=== PATIENT | male | born 1955 | race Caucasian/White ===

== ENCOUNTER 2021-10-06 12:44 | Emergency (ER) | payer MEDICARE, BC ==
[2021-10-06] MEDS ORDERED: SUBLIMAZE 100 MCG/2 ML IV ONE ×2 (13:05→14:35)
[2021-10-06] MEDS ORDERED: Zofran 4 MG/2 ML VIAL IV ONE (13:05)
[2021-10-06] MEDS ORDERED: Sodium Chloride 0.9% 1000 ML 1,000 ML IV SCH (13:15)
[2021-10-06] MEDS ORDERED: Zofran 4 MG/2 ML VIAL ONE (13:17)
[2021-10-06] MEDS ORDERED: SUBLIMAZE 100 MCG/2 ML ONE ×2 (13:17→14:35)
[2021-10-06] MEDS ORDERED: Sodium Chloride 0.9% 1000 ML 1,000 ML ONE (13:17)
[2021-10-06 13:26] LABS: Basophil (Absolute #) 0.03 (0-0.4); Eosinophil % 0.8 % (0.00-5.0); Hematocrit 50.5 % (42-50); Hemoglobin 16.8 gm/dl (12.5-18.0); Lymphocyte (Absolute #) 1.27 (1.0-4.6); Lymphocytes % 9.6 % (24.0-44.0); Mean Cell Volume 91.7 fl (78-100); Mean Corpuscular Hemoglobin 30.5 pg (26-32); Mean Corpuscular Hgb Concent. 33.3 g/dl (32-36); Mean Platelet Volume 11.2 fl (7.5-11.0); Monocyte (Absolute #) 1.18 (0.0-1.3); Neutrophil % 80.4 % (36.0-66.0); Platelet Count 266 K/mm3 (150-450); Red Blood Count 5.51 M/mm3 (4.1-5.6); Red Cell Distribution Width 14.1 % (11.5-14.0); White Blood Count 13.2 K/mm3 (4.0-10.5)
[2021-10-06 13:33] LABS: INR 1.1 (0.8-3.0)
[2021-10-06 13:36] LABS: ANION GAP 20.4 MEQ/L (5-15); BILIRUBIN,TOTAL 1.1 mg/dL (0.2-1.3); Calcium 10.4 mg/dL (8.4-10.2); Creatinine 1 1.51 mg/dL (0.66-1.25); EST GLOMERULAR FILTRATION RATE 49.4 ML/MIN; Potassium 4.7 mmol/L (3.5-5.1); Total Protein 9.3 g/dL (6.3-8.2)
[2021-10-06 14:39] VITALS: BP 138/87
[2021-10-06 15:17] LABS: Hyaline Casts 26-50 /LPF (0-2); Mucus MODERATE /HPF (NEGATIVE); RBC 0-2 /HPF (0-2)
[2021-10-06 15:26] LABS: Appearance CLEAR (CLEAR); Bilirubin SMALL (NEGATIVE); Glucose 250 mg/dL (NEGATIVE); Ketones NEGATIVE (NEGATIVE); Nitrite NEGATIVE (NEGATIVE); Ph 5.5 (5-6); Protein,Urine Dip TRACE (Negative); RBC NEGATIVE Ery/ul (0-5); Specific Gravity >=1.030 (1.005-1.025); Urobilinogen 0.2 mg/dL (0-1)
[2021-10-06 15:28] VITALS: O2SAT 92
[2021-10-06 15:28] LABS: Urine Cultured Indicated? NO
--- NOTE | 2021-10-06 15:31 | XRAY ---
Indication: Elevated WBC and d-dimer. Pulmonary embolus. Multiple contiguous axial images obtained through the chest using 100 cc Isovue 370 contrast and PE protocol. Comparison: None There is adequate opacification of the pulmonary arteries to include the lobar and segmental branches. Occluding and nonoccluding pulmonary emboli in the segmental branches of the right lower lobe, greatest extent lateral segment. Tiny nonoccluding pulmonary emboli in both upper lobes. Heart not enlarged. Aorta is normal in course and caliber. Right hilar lymphadenopathy, largest infrahilar measuring 2.2 x 2.3 cm effacing the pulmonary arteries. Tiny subcarinal calcified node. Small hiatal hernia. Lungs demonstrates posterior right lower lobe groundglass airspace opacities. Elsewhere mild bibasilar subsegmental atelectasis/scarring. No effusion. Bony thorax intact with mild multilevel osteophytes. CT abdomen/pelvis reported separately. Impression: 1. Bilateral segmental occluding/nonoccluding pulmonary emboli, greatest right lower lobe. 2. Right hilar lymphadenopathy with mass effect as detailed. Findings likely reactive. Malignancy not completely excluded. 3. Right lower lobe ground glass airspace disease. 4. Small hiatal hernia.
--- NOTE | 2021-10-06 15:33 | XRAY ---
Indication: Right upper quadrant/right back pain 2 days. Multiple contiguous images obtained through the abdomen and pelvis using 100 cc Isovue 370 contrast. Comparison: None Noncontrasted stomach and bowel loops appear nonobstructed with normal appendix. Mild diffuse scattered colonic diverticulosis without diverticulitis. No free fluid/air. 1.3 cm bilateral adrenal masses, possible adenomas. Diffuse fatty hepatomegaly measuring 21.2 cm. Spleen is also enlarged measuring 14.8 cm. 4 cm right and 2.3 cm left renal cysts. Enlarged prostate gland impresses on the base of the bladder. Remaining liver, gallbladder, pancreas, spleen, adrenal glands, kidneys, ureters, and bladder are unremarkable. Mild scattered aortoiliac calcifications. No AAA or pathologic retroperitoneal lymphadenopathy. Osseous structures intact with minimal/mild degenerative changes throughout the spine. Moderate sized fatty left inguinal hernia. Impression: 1. Small bilateral adrenal gland masses, possible adenomas. Noncontrast exam could confirm. 2. Diffuse fatty hepatomegaly, splenomegaly, bilateral renal cysts, enlarged prostate gland, fatty left inguinal hernia, and degenerative spondylosis.
[2021-10-06] MEDS ORDERED: Heparin 5000 UNITS/0.5 ML (HIGH RISK MED) IV ONE (15:50)
[2021-10-06] MEDS ORDERED: Heparin 25,000 units/D5W 250ML PREMIX 25,000 UNITS/250 ML BAG IV SCH (16:00)
[2021-10-06 16:03] LABS: Dipstick done @ ? MAIN LAB
[2021-10-06] MEDS ORDERED: Heparin 5000 UNITS/0.5 ML (HIGH RISK MED) ONE (16:08)
--- NOTE | 2021-10-06 16:08 | ERPHSYRPT ---
- History of Present Illness Time Seen by Provider: 10/06/21 12:45 Historian: patient, family Exam Limitations: no limitations Patient Subjective Stated Complaint: right side abd pain yesterday and today and today has abd and right side lower chest pain that radiates to right flank and back. Triage Nursing Assessment: Pt c/o right side abd pain since yesterday and states pain also in right side lower chest/flank and radiates to back. No n/v. no diaphoresis. States still has gall bladder and appendix, no heart hx per self but parents had cardiac hx. No problems with bowels or bladder. Physician History: Patient is a 77-year-old white male who presents with a complaint of right flank and right chest pain extending into the abdomen he has had no change in urination no fever chills or sweats but his family does report occasional night sweats. He has been coughing nonproductively since yesterday he rates the pain 10 of 10 it is pleuritic in nature Timing/Duration: yesterday Activities at Onset: none Quality: throbbing, tightness Location: other (Right chest) Chest Pain Radiation: back, abdomen Severity of Pain-Max: severe Severity of Pain-Current: severe Modifying Factors: Improves With: coughing, oxygen Associated Symptoms: shortness of breath, cough, hurts to breathe, diaphoresis Nitro Today/Relief: no nitro taken today Aspirin Treatment Today: no aspirin today Allergies/Adverse Reactions: No Known Drug Allergies Allergy (Unverified 10/06/21 15:58) Immunizations Up to Date: Yes Travel Risk - International Travel Have you traveled outside of the country in past 3 weeks: No - Coronavirus Screening Are you exhibiting any of the following symptoms?: No Close contact with a COVID-19 positive Pt in past 14-21 Days: No - Vaccine Status Have you recieved a Covid-19 vaccination: Yes 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: [employer] - Vaccination Dates Date of 2cond Vaccination (if applicable): 2020 - Review of Systems Constitutional: No Fever, No Chills Eyes: No Symptoms Ears, Nose, & Throat: No Symptoms Respiratory: No Cough, No Dyspnea Cardiac: No Chest Pain, No Edema, No Syncope Abdominal/Gastrointestinal: No Abdominal Pain, No Nausea, No Vomiting, No Diarrhea Genitourinary Symptoms: No Dysuria Musculoskeletal: No Back Pain, No Neck Pain Skin: No Rash Neurological: No Dizziness, No Focal Weakness, No Sensory Changes Psychological: No Symptoms Endocrine: No Symptoms All Other Systems: Reviewed and Negative - Past Medical History Pertinent Past Medical History: Yes Neurological History: No Pertinent History ENT History: Other Cardiac History: No Pertinent History Respiratory History: No Pertinent History Endocrine Medical History: Diabetes Type I Musculoskeletal History: No Pertinent History GI Medical History: No Pertinent History History: No Pertinent History Psycho-Social History: No Pertinent History Male Reproductive Disorders: No Pertinent History Other Medical History: Hearing loss right ear with surgeries - Past Surgical History Past Surgical History: Yes Neuro Surgical History: No Pertinent History Cardiac: No Pertinent History Respiratory: No Pertinent History Gastrointestinal: No Pertinent History Genitourinary: No Pertinent History Musculoskeletal: No Pertinent History Male Surgical History: No Pertinent History - Social History Smoking Status: Former smoker Exposure to second hand smoke: No Drug Use: marijuana - Nursing Vital Signs Nursing Vital Signs: Initial Vital Signs Temperature 98.6 F 10/06/21 12:45 Pulse Rate 91 H 10/06/21 12:45 Respiratory Rate 18 10/06/21 12:45 Blood Pressure 146/96 10/06/21 12:45 O2 Sat by Pulse Oximetry 93 L 10/06/21 12:45 Pain Scale Pain Intensity 4 - Physical Exam General Appearance: moderate distress Eye Exam: PERRL/EOMI, eyes nml inspection Ears, Nose, Throat Exam: normal ENT inspection, moist mucous membranes Neck Exam: normal inspection, non-tender, supple, full range of motion Respiratory Exam: respiratory distress (Mild), airway intact, rhonchi Cardiovascular Exam: regular rate/rhythm Gastrointestinal/Abdomen Exam: soft, No tenderness, No mass Extremity Exam: normal inspection, normal range of motion Neurologic Exam: alert, oriented x 3, cooperative, normal mood/affect, sensation nml, No motor deficits Skin Exam: normal color, warm, dry SpO2 Interpretation: hypoxic, O2 applied SpO2: 92 O2 Delivery: Nasal Cannula - Course Nursing assessment & vital signs reviewed: Yes EKG Interpreted by Me: RATE (98), Sinus Rhythm, Other (Ventricular bigeminy left atrial enlargement left anterior fascicular block and left ventricular hypertrophy) - CT Exams Chest CT Interpretation: Tele-radiologist Report Abdomen/Pelvis CT Interpretation: Tele-radiologist Report Ordered Tests: Active Orders 24 hr Category Date Time Status EKG-ER Only STAT Care 10/06/21 13:02 Active IV Insertion STAT Care 10/06/21 13:02 Active Oxygen-ED Only Nasal Cannula 2 lpm Care 10/06/21 13:58 Active ABDOMEN AND PELVIS W CONTRAST [CT] Stat Exams 10/06/21 13:03 Completed CHEST WITH CONTRAST [CT] Stat Exams 10/06/21 13:45 Completed AMYLASE Stat Lab 10/06/21 12:46 Completed BLOOD CULTURE Stat Lab 10/06/21 13:50 Received CBC W DIFF Stat Lab 10/06/21 13:02 Completed CMP Stat Lab 10/06/21 12:46 Completed D-DIMER QUANTITATIVE Stat Lab 10/06/21 12:46 Completed LIPASE Stat Lab 10/06/21 12:46 Completed Lactic Acid Stat Lab 10/06/21 12:46 Completed NT PRO BNP Stat Lab 10/06/21 12:46 Completed PROTIME WITH INR Stat Lab 10/06/21 12:46 Completed TROPONIN Q3H Lab 10/06/21 12:46 Completed TROPONIN Q3H Lab 10/06/21 15:52 Received TROPONIN Q3H Lab 10/06/21 19:15 Ordered TROPONIN Q3H Lab 10/06/21 22:15 Ordered TROPONIN Q3H Lab 10/07/21 01:15 Ordered UA W/RFX CULTURE Stat Lab 10/06/21 13:57 Results Medication Summary Generic Name Dose Route Start Last Admin Trade Name Freq PRN Reason Stop Dose Admin Sodium Chloride 1,000 mls @ 100 mls/hr 10/06/21 13:15 10/06/21 13:19 Sodium Chloride 0.9% 1000 Ml IV 11/05/21 13:14 100 mls/hr .Q10H YARA Administration Heparin Sodium/Dextrose 25,000 units in 250 mls @ 10 mls/hr 10/06/21 16:00 Heparin 25,000 Units/D5w 250ml Premix IV 11/05/21 15:59 .Q24H YARA Discontinued Medications Generic Name Dose Route Start Last Admin Trade Name Freq PRN Reason Stop Dose Admin Fentanyl Citrate 100 mcg 10/06/21 13:05 10/06/21 13:19 Fentanyl Citrate 100 Mcg/2 Ml* Vial IV 10/06/21 13:06 100 mcg STAT ONE Administration Fentanyl Citrate Confirm 10/06/21 13:17 Fentanyl Citrate 100 Mcg/2 Ml* Vial Administered 10/06/21 13:18 Dose 100 mcg .ROUTE .STK-MED ONE Fentanyl Citrate 100 mcg 10/06/21 14:35 10/06/21 14:36 Fentanyl Citrate 100 Mcg/2 Ml* Vial IV 10/06/21 14:36 100 mcg STAT ONE Administration Fentanyl Citrate Confirm 10/06/21 14:35 Fentanyl Citrate 100 Mcg/2 Ml* Vial Administered 10/06/21 14:36 Dose 100 mcg .ROUTE .STK-MED ONE Heparin Sodium (Beef Lung) 5,000 unit 10/06/21 15:50 Heparin 5000 Unit/0.5 Ml Syringe IV 10/06/21 15:51 STAT ONE Ondansetron HCl 4 mg 10/06/21 13:05 10/06/21 13:19 Ondansetron Hcl 4 Mg/2 Ml Vial IV 10/06/21 13:06 4 mg STAT ONE Administration Ondansetron HCl Confirm 10/06/21 13:17 Ondansetron Hcl 4 Mg/2 Ml Vial Administered 10/06/21 13:18 Dose 4 mg .ROUTE .STK-MED ONE Lab/Rad Data: Laboratory Result Diagrams 10/06/21 13:02 10/06/21 12:46 Laboratory Results 10/06/21 10/06/21 10/06/21 Range/Units 13:57 13:02 12:46 WBC 13.2 H (4.0-10.5) K/mm3 RBC 5.51 (4.1-5.6) M/mm3 Hgb 16.8 (12.5-18.0) gm/dl Hct 50.5 H (42-50) % MCV 91.7 (78-100) fl MCH 30.5 (26-32) pg MCHC 33.3 (32-36) g/dl RDW 14.1 H (11.5-14.0) % Plt Count 266 (150-450) K/mm3 MPV 11.2 H (7.5-11.0) fl Gran % 80.4 H (36.0-66.0) % Eos # (Auto) 0.10 (0-0.5) Absolute Lymphs (auto) 1.27 (1.0-4.6) Absolute Monos (auto) 1.18 (0.0-1.3) Lymphocytes % 9.6 L (24.0-44.0) % Monocytes % 9.0 (0.0-12.0) % Eosinophils % 0.8 (0.00-5.0) % Basophils % 0.2 (0.0-0.4) % Absolute Granulocytes 10.60 H (1.4-6.9) Basophils # 0.03 (0-0.4) PT (9.4-12.5) SECONDS INR (0.8-3.0) D-Dimer (215-500) ng/mL Sodium (137-145) mmol/L Potassium (3.5-5.1) mmol/L Chloride (98-107) mmol/L Carbon Dioxide (22-30) mmol/L Anion Gap (5-15) MEQ/L BUN (9-20) mg/dL Creatinine (0.66-1.25) mg/dL Estimated GFR ML/MIN Glucose (74-106) mg/dL Lactic Acid (0.4-2.0) Calcium (8.4-10.2) mg/dL Total Bilirubin (0.2-1.3) mg/dL AST (17-59) U/L ALT (0-50) U/L Alkaline Phosphatase (38-126) U/L Troponin I 0.012 (0.000-0.034) ng/mL NT-Pro-B Natriuret Pep (0-900) pg/mL Serum Total Protein (6.3-8.2) g/dL Albumin (3.5-5.0) g/dL Amylase (30-110) U/L Lipase (23-300) U/L Urinalys Dipstick Clnc Pending Urine Color YELLOW (YELLOW) Urine Appearance CLEAR (CLEAR) Urine pH 5.5 (5-6) Ur Specific [place] >=1.030 (1.005-1.025) POC Urine Protein Conf TRACE (Negative) Urine Ketones NEGATIVE (NEGATIVE) Urine Nitrite NEGATIVE (NEGATIVE) Urine Bilirubin SMALL (NEGATIVE) Urine Urobilinogen 0.2 (0-1) mg/dL Urine Leukocytes NEGATIVE (NEGATIVE) Urine WBC (Auto) 3-5 (0-5) /HPF Urine RBC (Auto) 0-2 (0-2) /HPF U Hyaline Cast (Auto) 26-50 (0-2) /LPF U Epithel Cells (Auto) NONE (FEW) /HPF Urine Bacteria (Auto) NONE (NEGATIVE) /HPF Urine RBC NEGATIVE (0-5) [place]/ul Other Casts (Auto) 5-10 (NEGATIVE) /LPF Urine Mucus (Auto) MODERATE (NEGATIVE) /HPF Ur Culture Indicated? NO Urine Glucose 250 (NEGATIVE) mg/dL 10/06/21 10/06/21 10/06/21 Range/Units 12:46 12:46 12:46 WBC (4.0-10.5) K/mm3 RBC (4.1-5.6) M/mm3 Hgb (12.5-18.0) gm/dl Hct (42-50) % MCV (78-100) fl MCH (26-32) pg MCHC (32-36) g/dl RDW (11.5-14.0) % Plt Count (150-450) K/mm3 MPV (7.5-11.0) fl Gran % (36.0-66.0) % Eos # (Auto) (0-0.5) Absolute Lymphs (auto) (1.0-4.6) Absolute Monos (auto) (0.0-1.3) Lymphocytes % (24.0-44.0) % Monocytes % (0.0-12.0) % Eosinophils % (0.00-5.0) % Basophils % (0.0-0.4) % Absolute Granulocytes (1.4-6.9) Basophils # (0-0.4) PT 13.0 H (9.4-12.5) SECONDS INR 1.10 (0.8-3.0) D-Dimer 2121 H* (215-500) ng/mL Sodium 140 (137-145) mmol/L Potassium 4.7 (3.5-5.1) mmol/L Chloride 103 (98-107) mmol/L Carbon Dioxide 21 L (22-30) mmol/L Anion Gap 20.4 H (5-15) MEQ/L BUN 21 H (9-20) mg/dL Creatinine 1.51 H (0.66-1.25) mg/dL Estimated GFR 49.4 ML/MIN Glucose 90 (74-106) mg/dL Lactic Acid (0.4-2.0) Calcium 10.4 H (8.4-10.2) mg/dL Total Bilirubin 1.10 (0.2-1.3) mg/dL AST 43 (17-59) U/L ALT 46 (0-50) U/L Alkaline Phosphatase 101 (38-126) U/L Troponin I (0.000-0.034) ng/mL NT-Pro-B Natriuret Pep 41.6 (0-900) pg/mL Serum Total Protein 9.3 H (6.3-8.2) g/dL Albumin 5.0 (3.5-5.0) g/dL Amylase 104 (30-110) U/L Lipase 197 (23-300) U/L Urinalys Dipstick Clnc Urine Color (YELLOW) Urine Appearance (CLEAR) Urine pH (5-6) Ur Specific [place] (1.005-1.025) POC Urine Protein Conf (Negative) Urine Ketones (NEGATIVE) Urine Nitrite (NEGATIVE) Urine Bilirubin (NEGATIVE) Urine Urobilinogen (0-1) mg/dL Urine Leukocytes (NEGATIVE) Urine WBC (Auto) (0-5) /HPF Urine RBC (Auto) (0-2) /HPF U Hyaline Cast (Auto) (0-2) /LPF U Epithel Cells (Auto) (FEW) /HPF Urine Bacteria (Auto) (NEGATIVE) /HPF Urine RBC (0-5) [place]/ul Other Casts (Auto) (NEGATIVE) /LPF Urine Mucus (Auto) (NEGATIVE) /HPF Ur Culture Indicated? Urine Glucose (NEGATIVE) mg/dL 10/06/21 Range/Units 12:46 WBC (4.0-10.5) K/mm3 RBC (4.1-5.6) M/mm3 Hgb (12.5-18.0) gm/dl Hct (42-50) % MCV (78-100) fl MCH (26-32) pg MCHC (32-36) g/dl RDW (11.5-14.0) % Plt Count (150-450) K/mm3 MPV (7.5-11.0) fl Gran % (36.0-66.0) % Eos # (Auto) (0-0.5) Absolute Lymphs (auto) (1.0-4.6) Absolute Monos (auto) (0.0-1.3) Lymphocytes % (24.0-44.0) % Monocytes % (0.0-12.0) % Eosinophils % (0.00-5.0) % Basophils % (0.0-0.4) % Absolute Granulocytes (1.4-6.9) Basophils # (0-0.4) PT (9.4-12.5) SECONDS INR (0.8-3.0) D-Dimer (215-500) ng/mL Sodium (137-145) mmol/L Potassium (3.5-5.1) mmol/L Chloride (98-107) mmol/L Carbon Dioxide (22-30) mmol/L Anion Gap (5-15) MEQ/L BUN (9-20) mg/dL Creatinine (0.66-1.25) mg/dL Estimated GFR ML/MIN Glucose (74-106) mg/dL Lactic Acid 1.1 (0.4-2.0) Calcium (8.4-10.2) mg/dL Total Bilirubin (0.2-1.3) mg/dL AST (17-59) U/L ALT (0-50) U/L Alkaline Phosphatase (38-126) U/L Troponin I (0.000-0.034) ng/mL NT-Pro-B Natriuret Pep (0-900) pg/mL Serum Total Protein (6.3-8.2) g/dL Albumin (3.5-5.0) g/dL Amylase (30-110) U/L Lipase (23-300) U/L Urinalys Dipstick Clnc Urine Color (YELLOW) Urine Appearance (CLEAR) Urine pH (5-6) Ur Specific [place] (1.005-1.025) POC Urine Protein Conf (Negative) Urine Ketones (NEGATIVE) Urine Nitrite (NEGATIVE) Urine Bilirubin (NEGATIVE) Urine Urobilinogen (0-1) mg/dL Urine Leukocytes (NEGATIVE) Urine WBC (Auto) (0-5) /HPF Urine RBC (Auto) (0-2) /HPF U Hyaline Cast (Auto) (0-2) /LPF U Epithel Cells (Auto) (FEW) /HPF Urine Bacteria (Auto) (NEGATIVE) /HPF Urine RBC (0-5) [place]/ul Other Casts (Auto) (NEGATIVE) /LPF Urine Mucus (Auto) (NEGATIVE) /HPF Ur Culture Indicated? Urine Glucose (NEGATIVE) mg/dL - Progress Progress: unchanged Air Movement: fair Blood Culture(s) Obtained: Yes Antibiotics given: No - Departure Departure Disposition: Transfer (Patient will be transferred to [facility] to Dr. Rosalino aguiaring) Clinical Impression: Multiple subsegmental pulmonary emboli without acute cor pulmonale Condition: Critical Critical Care Time: Yes Critical Care Time(excluding separately billable procedures): Critical 30-74 mins (70) Referrals: [facility] [Primary Care Provider] - Follow up/PCP as directed
[2021-10-06] MEDS ORDERED: Hydromorphone 1 mg/ml Injection IV ONE (16:10)
[2021-10-06] MEDS ORDERED: Hydromorphone 1 mg/ml Injection ONE (16:10)
[2021-10-06 16:19] VITALS: PULSE 101
== END 2021-10-06 16:27 | disposition short-term general hospital (02) ==
LOC: ED 12:44
DX: I26.94 Multiple subsegmental thrombotic pulmonary emboli without acute cor pulmonale (principal); R07.9 Chest pain, unspecified; R10.9 Unspecified abdominal pain; R05.1 Acute cough; R06.02 Shortness of breath; E10.9 Type 1 diabetes mellitus without complications
CPT/HCPCS: 36000; 36415; 71260; 74177; 80053; 81015; 82150; 83605; 83690; 83880; 84484; 85025; 85379; 85610; 87040; 93005; 96374; 96375; 96376; 99285; 99291; J1170; J1644; J2405; J3010

== ENCOUNTER 2025-03-29 09:42 | Day surgery (SDC) | payer BC, MEDICARE ==
[~2025-03-29 09:42] MED LIST: KEFZOL 1 GM ONE; Lactated Ringers 1,000 ML IV ONE; Sensorcaine 0.25% 10 ML ONE
[2025-03-29] MEDS ORDERED: CEFAZOLIN SODIUM ONE (10:14)
[2025-03-29 10:46] VITALS: BP 127/76
[2025-03-29] MEDS: TYLENOL EXTRA STRENGTH 500 MG PO ONE (10:46)
[2025-03-29] MEDS: celeBREX 100 MG PO ONE (10:46)
[2025-03-29 10:47] LABS: BASOPHIL % 0.4 % (0.2-1.2); Basophil (Absolute #) 0.02 x10^3/uL (0.01-0.08); Eosinophil (Absolute #) 0.12 x10^3/uL (0.04-0.54); Hematocrit 47.8 % (40.1-51.0); Hemoglobin 16.0 g/dL (13.7-17.5); IMMATURE GRAN # 0.02 x10^3u/L (0.001-0.031); IMMATURE GRAN % 0.4 % (0.001-0.429); Lymphocyte (Absolute #) 1.49 x10^3/uL (1.32-3.57); Mean Corpuscular Hemoglobin 31.6 pg (25.7-32.2); Mean Corpuscular Hgb Concent. 33.5 g/dL (32.3-36.5); Monocyte (Absolute #) 0.63 x10^3/uL (0.30-0.82); NUCLEATED RBC # 0.00 x10^3u/L (0.00-0.012); NUCLEATED RBC % 0.0 % (0.00-0.2); Platelet Count 193 x10^3/uL (163-337); Red Blood Count 5.06 x10^6/uL (4.63-6.08); White Blood Count 5.2 x10^3/uL (4.23-9.07)
[2025-03-29] MEDS: Decadron 4 MG PO ONE (10:47)
[2025-03-29 11:31] LABS: Calcium 9.6 mg/dL (8.4-10.2); Carbon Dioxide 25.0 mmol/L (22-30); Creatinine 1 1.19 mg/dL (0.66-1.25); EST GLOMERULAR FILTRATION RATE 66.1 ML/MIN; Glucose 139.0 mg/dL (74-106); Potassium 4.8 mmol/L (3.5-5.1); SGOT/AST 38.0 U/L (17-59); SGPT/ALT 35.0 U/L (0-50); Total Protein 8.2 g/dL (6.3-8.2)
[2025-03-29] MEDS ORDERED: SUBLIMAZE 100 MCG/2 ML ONE ×3 (11:46→13:23)
[2025-03-29] MEDS ORDERED: propofoL IV ONE (11:46)
[2025-03-29] MEDS ORDERED: Xylocaine-Mpf 2% 5 Ml Vial ONE (11:46)
[2025-03-29] MEDS ORDERED: ROCURONIUM BROMIDE IV ONE ×2 (11:46→12:17)
[2025-03-29] MEDS ORDERED: Zofran 4 MG/2 ML VIAL ONE (12:00)
[2025-03-29] MEDS ORDERED: BRIDION 200MG/2ML IV ONE (12:00)
[2025-03-29] MEDS ORDERED: Ephedrine Sulfate 50 MG/ML ONE (12:06)
[2025-03-29] MEDS ORDERED: ROBINUL ONE (12:24)
[2025-03-29] MEDS ORDERED: TRANDATE 20 MG/4 ML SYRINGE IV ONE (12:43)
[2025-03-29] MEDS ORDERED: DILAUDID 2 MG INJECTION ONE (13:01)
[2025-03-29] MEDS ORDERED: DILAUDID 0.5 MG/0.5 ML SYRINGE ONE (13:23)
[2025-03-29] MEDS: DUONEB 0.5-3 MG/3 ml Neb IH ONE (14:12)
[2025-03-29 16:43] VITALS: PULSE 82; RESP 20; TEMP 97.7; O2SAT 91
--- NOTE | 2025-03-29 16:50 | XRAY ---
Indication: Low oxygenation. Postop. Comparison: None Portable chest demonstrates mild left base infiltrate/atelectasis/effusion. Also minimal bilateral midlung curvilinear subsegmental atelectasis/scarring. No pneumothorax. Heart not enlarged. Bony thorax intact.
--- NOTE | 2025-03-30 09:34 | OP ---
SURGERY DATE/TIME: 03/29/2025 [id number] PREOPERATIVE DIAGNOSIS: Umbilical hernia. POSTOPERATIVE DIAGNOSIS: Umbilical hernia. PROCEDURE: Laparoscopic repair of umbilical hernia with mesh, intraperitoneal onlay mesh. SURGEON: Faustino Bartlett MD ANESTHESIA: General. ESTIMATED BLOOD LOSS: Minimal. PATIENT CONDITION: Stable. COMPLICATIONS: None. SPECIMEN: None. HISTORY OF PRESENT ILLNESS: The patient is a 69-year-old male with reducible umbilical hernia. On exam, quite symptomatic with that, is obese. Discussed with patient risk of infection, bleeding, injury to nearby structures, hernia recurrence, acute pain, chronic pain. Options of a primary repair with almost certain recurrence. Mesh repair would be more durable, especially with more overlap such as an IPOM underlay repair. Increased risk of scarring intra-abdominally with that, but he does want to proceed with that. FINDINGS: IPOM 11 cm with Echo. DESCRIPTION OF PROCEDURE AND FINDINGS: Patient was brought to the operating room, general anesthesia induced, routinely positioned, prepped, draped, time-out performed, received preoperative antibiotic. Veress needle was inserted in left upper quadrant, pneumoperitoneum established. A 5 mm Optiview trocar was placed left upper quadrant. A 5 mm left mid abdominal trocar placed. A 5 mm left lower quadrant trocar placed. Preperitoneal space was then entered, that there is an umbilical hernia reducible with some omentum in it as well as preperitoneal fat. That the preperitoneal space was dissected out. The hernia sac completely dissected out. It was mostly omentum up in that hernia and all the omentum appeared viable after the dissection. Satisfactory with adequate space for mesh placement. An 11 mm trocar was placed periumbilically and placed through the hernia defect. Defect size measures about 10 mm. The mesh was then introduced. This is Echo 11 mm mesh but the positioning system had been removed previous and the fascia was closed with 0 PDS interrupted suture passer and the mesh was brought up to the abdominal wall and secured in place with AbsorbaTack tacker. That is all flat, hemostatic, satisfactory. The omentum is brought between the mesh and the bowel. Desufflated under direct visualization. The trocars were removed. Marcaine had been injected. Skin closed with 4-0 Vicryl suture. Steri-Strips, sterile dressing applied. All counts correct. Patient tolerated the procedure well. Plan is for extubation.
[2025-03-30] MEDS ORDERED: Zestril 20 MG PO SCH (10:00)
[2025-03-30] MEDS ORDERED: JARDIANCE PO SCH (10:00)
[2025-03-30] MEDS ORDERED: LUTEIN PO SCH (10:00)
[2025-03-30] MEDS ORDERED: FOLIC PO SCH (10:00)
[2025-03-30] MEDS ORDERED: LYCOPEN PO SCH (10:00)
[2025-03-30] MEDS ORDERED: K1 PO SCH (10:00)
[2025-03-30] MEDS ORDERED: Zocor 10MG PO SCH (10:00)
[2025-03-30] MEDS ORDERED: TYLENOL 325 MG PO SCH (10:00)
[2025-03-30] MEDS ORDERED: THERAGRAN MULTIVITAMIN PO SCH (10:00)
[2025-03-30] MEDS ORDERED: [UNRECOGNIZED DRUG - OTHER] PO SCH (10:00)
[2025-03-30] MEDS ORDERED: NORVASC 5 MG PO SCH (10:00)
[2025-03-30] MEDS ORDERED: Miralax Powder 17GM PACKET PO SCH (10:00)
[2025-03-30] MEDS ORDERED: MV MIN PO SCH (10:00)
== END 2025-03-29 19:53 | disposition home or self-care (01) ==
LOC: SDC 09:42 → MED SURG 14:45 → SDC 19:53
PROVIDERS: ATTEND Surgery
DX: K42.9 Umbilical hernia without obstruction or gangrene (principal); E11.9 Type 2 diabetes mellitus without complications